=== PATIENT | female | born 1965 | race Caucasian/White ===

== ENCOUNTER 2020-02-03 10:32 | Emergency (ER) | payer SELFPAY | END 2020-02-03 11:05 | disposition home or self-care (01) | LOC: MADERS 10:32 | DX: I10 Essential (primary) hypertension (principal); M06.9 Rheumatoid arthritis, unspecified; F17.210 Nicotine dependence, cigarettes, uncomplicated; Z79.899 Other long term (current) drug therapy | CPT/HCPCS: 99283 ==